=== PATIENT | female | born 1970 | race Two or more races ===

== ENCOUNTER 2020-04-29 03:46 | Emergency (ER) | payer SELFPAY ==
[~2020-04-29] VITALS: Ht 172.7 cm; Wt 66.7 kg
[2020-04-29 03:54] VITALS: BP 142/70
[2020-04-29] MEDS ORDERED: KETOROLAC TROMETHAMINE INJ 60 MG/2 ML VIAL IM ONE ×2 (03:58→04:00)
--- NOTE | 2020-04-29 04:02 | NUR ---
TAKENT TO CT,
--- NOTE | 2020-04-29 04:07 | NUR ---
PATIENT CAME TO ER BED 9 C/O RIGHT HIP PAIN SINCE TODAY, S/P FALLING OFF A BENCH. PATIENT STATES THAT HER HIP IS A "20/10 PAIN". PATIENT IS AAOX4. NO SOB. BREATHING EVENLY AND UNLABORED ON ROOM AIR.
--- NOTE | 2020-04-29 04:12 | NUR ---
SECURITY AT BEDSIDE FOR WANDING
--- NOTE | 2020-04-29 04:43 | NUR ---
PATIENT IS AGITATED, YELLING AND THREATENING STAFF. MD HAS DISCHARGED PATIENT. PATIENT STATES THAT SHE DOESN'T WANT TO LEAVE. SECURITY IS CALLED TO ER FOR ASSISTANCE.
--- NOTE | 2020-04-29 04:50 | NUR ---
PANTS ARE PROVIDED TO PATIENT.
--- NOTE | 2020-04-29 04:57 | NUR ---
PATIENT C/O RIGHT KNEE PAIN. MD NOTIFIED.
--- NOTE | 2020-04-29 06:23 | NUR ---
PATIENT IS REFUSING TO SIGN PAPERWORK.
--- NOTE | 2020-04-29 06:24 | NUR ---
PATIENT RIPPED UP DISCHARGE PAPER WORK.
--- NOTE | 2020-04-29 06:28 | NUR ---
Patient discharged to home in stable condition. Written and verbal after care instructions given. Patient verbalizes understanding of instruction.
== END 2020-04-29 06:30 | disposition home or self-care (01) ==
LOC: ER 03:49
DX: M54.9 Dorsalgia, unspecified (principal); G89.29 Other chronic pain; M25.561 Pain in right knee
CPT/HCPCS: 73564; 74176; 96372; 99284; J1885